=== PATIENT | male | born 1990 | race African-American/Black ===

== ENCOUNTER 2021-05-16 10:35 | Emergency (ER) | payer SELFPAY ==
--- NOTE | 2021-05-16 10:43 | EDM.PDOC ---
ED HPI GENERAL MEDICAL PROBLEM - General Chief Complaint: ENT Problem Stated Complaint: N/V Time Seen by Provider: 05/16/21 10:35 Source of Information: Reports: Patient, Family History Limitations: Reports: Combative/Threatening - History of Present Illness INITIAL COMMENTS - FREE TEXT/NARRATIVE: Enrike, 30-year-old male, presents with his significant other transporting him to the emergency department. They had pulled into the garage which time he got out and placed himself on the floor due to a toothache. His spouse stated that he had dental pain and was the reason that they presented here as his pain has become worse and today became severe. He is not been able to eat very well secondary of tooth pain stating he attempted sloppy [employer] yesterday but the pain was so bad he did not complete the meal. He is face down on the floor with his partner giving details of his dental pain denying any other aspects. He does not appear appropriate for dental pain and is very dramatic and uncooperative. Denies drug use, denies alcohol intoxication. Significant other becomes very upset when drugs and alcohol are questioned as he is not acting appropriate I advised both her as well as Enrike that it will not risk a back injury to any of my staff nor myself to pick somebody up off the floor that has a complaint presentation for dental pain. He becomes somewhat cantankerous and belligerent with foul language at which time he abruptly stands up with no difficulty and does a stair down prior to seating himself in the wheelchair and brought to the department for assessment. He is somewhat more cooperative once in the room and is have IV start with antiemetic and pain medication fluid management as he experienced a bilious emesis on the carpet of the entry with no attempt for control. 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 Abdominal Pain Score (Numeric/FACES): 10 - Related Data Allergies Allergy/AdvReac Type Severity Reaction Status Date / Time No Known Drug Allergies Allergy Cannot Verified 05/16/21 11:40 Remember Home Meds: Home Meds Potassium Chloride 20 meq PO BID 2 Days #4 tab.er.prt 05/16/21 [Rx] clindamycin HCL [Clindamycin HCl] 450 mg PO TID 10 Days #30 capsule 05/16/21 [Rx] Past Medical History - Past Health History Medical/Surgical History: Denies Medical/Surgical History Social & Family History - Family History Family Medical History: No Pertinent Family History - Recreational Drug Use Recreational Drug Use: Yes Drug Use in Last 12 Months: Yes Recreational Drug Type: Reports: Marijuana/Hashish Recreational Drug Use Frequency: Binges Recreational Drug Route: Reports: Inhaled ED ROS GENERAL - Review of Systems Review Of Systems: Comprehensive ROS is negative, except as noted in HPI. ED EXAM, GENERAL - Physical Exam Exam: See Below Free Text/Narrative:: Alert, oriented and exaggerated distress. HEENT shows no discharge nor deformity with significant dentition concerns both upper and lower with #1 number 04/21/13 significantly carried and eroding. There is #17 and #[id number] with significant involvement. No edema noted, mild erythema in the right lower jaw. Neck is soft supple no lymphadenopathy. Thorax is clear nonlabored respirations. Cardiac regular. Course - Vital Signs Last Recorded V/S: Last Vital Signs Temp 96.5 F L 05/16/21 10:35 Pulse 51 L 05/16/21 10:35 Resp 20 05/16/21 10:35 BP 139/74 05/16/21 10:35 Pulse Ox 100 05/16/21 10:35 - Orders/Labs/Meds Orders: Active Orders 24 hr Category Date Time Status Peripheral IV Care [RC] . DIRECTED Care 05/16/21 10:48 Active Sodium Chloride 0.9% [Saline Flush] Med 05/16/21 10:48 Active 10 ml FLUSH Q8HR PRN Peripheral IV Insertion Adult [OM.PC] Stat Oth 05/16/21 10:48 Ordered Medication Orders Sodium Chloride (Sodium Chloride 0.9% 10 Ml Syringe) 10 ml FLUSH Q8HR PRN PRN Reason: keep vein open Labs: Laboratory Tests 05/16/21 05/16/21 05/16/21 Range/Units 13:15 13:15 13:50 WBC 21.69 H (5.00-10.00) 10^3/uL RBC 4.61 (4.50-6.00) 10^6/uL Hgb 13.9 (13.0-17.0) g/dL Hct 41.5 (40.0-52.0) % MCV 90.0 (82.0-92.0) fL MCH 30.2 (27.0-31.0) pg MCHC 33.5 (32.0-36.0) g/dL RDW 12.9 (11.5-14.5) % Plt Count 354 (150-400) 10^3/uL MPV 8.9 (7.4-10.4) fL Immature Gran % (Auto) 0.1 (0.0-5.0) % Neut % (Auto) 89.1 H (50.0-70.0) % Lymph % (Auto) 6.2 L (20.0-40.0) % [place] % (Auto) 4.4 (2.0-8.0) % Eos % (Auto) 0.0 L (1.0-3.0) % Baso % (Auto) 0.2 (0.0-1.0) % Neut # (Auto) 19.31 H (2.50-7.00) 10^3/uL Lymph # (Auto) 1.34 (1.00-4.00) 10^3/uL [place] # (Auto) 0.96 H (0.10-0.80) 10^3/uL Eos # (Auto) 0.01 L (0.10-0.30) 10^3/uL Baso # (Auto) 0.04 (0.00-0.10) 10^3/uL Immature Gran # (Auto) 0.03 (0.00-0.50) 10^3/uL Sodium 142 (136-145) mmol/L Potassium 2.9 L (3.5-5.1) mmol/L Chloride 102 (98-107) mmol/L Carbon Dioxide 22.6 (21.0-32.0) mmol/L Anion Gap 20.3 H (5-15) mmol/L BUN 8 (7-18) mg/dL Creatinine 1.05 (0.51-1.17) mg/dL Est Cr Clr Drug Dosing TNP Estimated GFR (MDRD) > 60 mL/min Glucose 152 H (70-140) mg/dL Calcium 8.8 (8.7-10.3) mg/dL Total Bilirubin 0.6 (0.2-1.0) mg/dL AST 18 (15-37) U/L ALT 24 (14-63) U/L Alkaline Phosphatase 57 (46-116) U/L Total Protein 8.3 H (6.4-8.2) g/dL Albumin 4.55 (3.40-5.00) g/dL Amylase 100 (25-125) U/L Lipase 78 (73-393) U/L Specimen Type Urincc Urine Color Yellow (YELLOW) Urine Appearance Clear (CLEAR) Urine pH 6.0 (5.0-9.0) Ur Specific [place] 1.025 (1.005-1.030) Urine Protein 30 H (NEGATIVE) mg/dL Urine Glucose (UA) Negative (NEGATIVE) mg/dL Urine Ketones 80 H (NEGATIVE) mg/dL Urine Occult Blood Negative (NEGATIVE) Urine Nitrite Negative (NEGATIVE) Urine Bilirubin Negative (NEGATIVE) Urine Urobilinogen 1.0 (0.2-1.0) E.U./dL Ur Leukocyte Esterase Negative (NEGATIVE) Urine RBC 0-5 (0-5) /HPF Urine WBC 0-5 (0-5) /HPF Ur Epithelial Cells Occasional /LPF Urine Bacteria Few (NONE TO FEW) /HPF Urine Mucus Many H (NEGATIVE) /LPF Urine Opiates Screen (NEGATIVE) Ur Oxycodone Screen (NEGATIVE) Urine Methadone Screen (NEGATIVE) Ur Propoxyphene Screen (NEGATIVE) Ur Barbiturates Screen (NEGATIVE) Ur Tricyclics Screen (NEGATIVE) Ur Phencyclidine Scrn (NEGATIVE) Ur Amphetamine Screen (NEGATIVE) U Methamphetamines Scrn (NEGATIVE) U Benzodiazepines Scrn (NEGATIVE) U Cocaine Metab Screen (NEGATIVE) U Marijuana (THC) Screen (NEGATIVE) 05/16/21 Range/Units 13:50 WBC (5.00-10.00) 10^3/uL RBC (4.50-6.00) 10^6/uL Hgb (13.0-17.0) g/dL Hct (40.0-52.0) % MCV (82.0-92.0) fL MCH (27.0-31.0) pg MCHC (32.0-36.0) g/dL RDW (11.5-14.5) % Plt Count (150-400) 10^3/uL MPV (7.4-10.4) fL Immature Gran % (Auto) (0.0-5.0) % Neut % (Auto) (50.0-70.0) % Lymph % (Auto) (20.0-40.0) % [place] % (Auto) (2.0-8.0) % Eos % (Auto) (1.0-3.0) % Baso % (Auto) (0.0-1.0) % Neut # (Auto) (2.50-7.00) 10^3/uL Lymph # (Auto) (1.00-4.00) 10^3/uL [place] # (Auto) (0.10-0.80) 10^3/uL Eos # (Auto) (0.10-0.30) 10^3/uL Baso # (Auto) (0.00-0.10) 10^3/uL Immature Gran # (Auto) (0.00-0.50) 10^3/uL Sodium (136-145) mmol/L Potassium (3.5-5.1) mmol/L Chloride (98-107) mmol/L Carbon Dioxide (21.0-32.0) mmol/L Anion Gap (5-15) mmol/L BUN (7-18) mg/dL Creatinine (0.51-1.17) mg/dL Est Cr Clr Drug Dosing Estimated GFR (MDRD) mL/min Glucose (70-140) mg/dL Calcium (8.7-10.3) mg/dL Total Bilirubin (0.2-1.0) mg/dL AST (15-37) U/L ALT (14-63) U/L Alkaline Phosphatase (46-116) U/L Total Protein (6.4-8.2) g/dL Albumin (3.40-5.00) g/dL Amylase (25-125) U/L Lipase (73-393) U/L Specimen Type Urine Color (YELLOW) Urine Appearance (CLEAR) Urine pH (5.0-9.0) Ur Specific [place] (1.005-1.030) Urine Protein (NEGATIVE) mg/dL Urine Glucose (UA) (NEGATIVE) mg/dL Urine Ketones (NEGATIVE) mg/dL Urine Occult Blood (NEGATIVE) Urine Nitrite (NEGATIVE) Urine Bilirubin (NEGATIVE) Urine Urobilinogen (0.2-1.0) E.U./dL Ur Leukocyte Esterase (NEGATIVE) Urine RBC (0-5) /HPF Urine WBC (0-5) /HPF Ur Epithelial Cells /LPF Urine Bacteria (NONE TO FEW) /HPF Urine Mucus (NEGATIVE) /LPF Urine Opiates Screen Negative (NEGATIVE) Ur Oxycodone Screen Negative (NEGATIVE) Urine Methadone Screen Negative (NEGATIVE) Ur Propoxyphene Screen Negative (NEGATIVE) Ur Barbiturates Screen Negative (NEGATIVE) Ur Tricyclics Screen Negative (NEGATIVE) Ur Phencyclidine Scrn Negative (NEGATIVE) Ur Amphetamine Screen Negative (NEGATIVE) U Methamphetamines Scrn Negative (NEGATIVE) U Benzodiazepines Scrn Negative (NEGATIVE) U Cocaine Metab Screen Negative (NEGATIVE) U Marijuana (THC) Screen Positive H (NEGATIVE) Meds: Medications Generic Name Dose Route Start Last Admin Trade Name Freq PRN Reason Stop Dose Admin Sodium Chloride 10 ml 05/16/21 10:48 Sodium Chloride 0.9% 10 Ml Syringe FLUSH Q8HR PRN keep vein open Discontinued Medications Generic Name Dose Route Start Last Admin Trade Name Freq PRN Reason Stop Dose Admin Dicyclomine HCl 20 mg 05/16/21 12:20 05/16/21 12:27 Dicyclomine 20 Mg/2 Ml Sdv IM 05/16/21 12:21 20 mg ONETIME ONE Administration Famotidine 20 mg 05/16/21 11:53 05/16/21 11:59 Famotidine 20 Mg/2 Ml Sdv IVPUSH 05/16/21 11:54 20 mg ONETIME ONE Administration Sodium Chloride 1,000 mls @ 999 mls/hr 05/16/21 10:51 05/16/21 10:45 Normal Saline IV 05/16/21 11:51 999 mls/hr .BOLUS ONE Administration Promethazine HCl 25 mg/ Sodium 101 mls @ 400 mls/hr 05/16/21 11:22 05/16/21 11:33 Chloride IV 05/16/21 11:37 400 mls/hr ONETIME ONE Administration Sodium Chloride Confirm 05/16/21 11:29 05/16/21 11:43 Normal Saline Administered 05/16/21 11:30 Not Given Dose 100 mls @ as directed .ROUTE .STK-MED ONE Clindamycin Phosphate 900 mg/ 56 mls @ 100 mls/hr 05/16/21 13:31 05/16/21 14:15 Sodium Chloride IV 05/16/21 14:04 Not Given ONETIME ONE Clindamycin Phosphate 900 mg/ 50 mls @ 100 mls/hr 05/16/21 13:53 05/16/21 13:54 Premix IV 05/16/21 14:22 100 mls/hr ONETIME ONE Administration Ketorolac Tromethamine 30 mg 05/16/21 10:48 05/16/21 10:53 Ketorolac 30 Mg/Ml Sdv IVPUSH 05/16/21 10:49 30 mg ONETIME ONE Administration Ketorolac Tromethamine 30 mg 05/16/21 10:49 05/16/21 10:55 Ketorolac 30 Mg/Ml Sdv IM 05/16/21 10:50 30 mg ONETIME ONE Administration Ondansetron HCl Confirm 05/16/21 10:46 05/16/21 11:43 Ondansetron 4 Mg/2 Ml Sdv Administered 05/16/21 10:47 Not Given Dose 4 mg .ROUTE .STK-MED ONE Ondansetron HCl 4 mg 05/16/21 10:48 05/16/21 10:48 Ondansetron 4 Mg/2 Ml Sdv IVPUSH 05/16/21 10:49 4 mg ONETIME ONE Administration - Radiology Interpretation Free Text/Narrative:: Negative chest x-ray for any significance for infiltrate, hemopneumothorax. Nonspecific bowel gas pattern possible viral or very early ileus but is most likely secondary of hyperemesis and the muscle cramping he is brought up on by his cannabinoid hyperemesis. - Re-Assessments/Exams Free Text/Narrative Re-Assessment/Exam: 05/16/21 11:22 Standing at bedside complaining of continued nausea 05/16/21 12:25 Tooth pain is subsided but ongoing nausea coming in waves with mild cramping. 05/16/21 13:34 X-rays obtained in blood for lab work with him not cooperating for urinalysis after receiving 1 L of IV fluid. At this time explained to him again the reality that we have exhausted all limits of medication, without doing complete lab analysis including the urine. When questioned on marijuana at this time he acknowledges that he does smoke possibly 4 days a week last time yesterday. Significant other states daily use I explained that he likely got a bad bag of weed with a higher THC level or that it is finally caught up with him from higher level of use. I explained that we have treated him to the limits of our ability in regards to the nausea and vomiting and that he will need to continue to maintain hydration, take antibiotic for the dental infection, see a dentist as soon as possible, and avoid any further irritation and have complete cessation of marijuana. 05/16/21 13:44 He is up requesting bathroom at this time for defecation provided him with urine as we are able to get a sample hopefully. Free Text/Narrative Re-Assessment/Exam: 05/16/21 14:33 Resting more comfortable with still occasional spasming and nausea development. Was able to be up and ambulate to the bathroom and back with minimal discomfort returning to the bed for the IV antibiotic. Was again readvised on the overall perspective and needed cessation of marijuana. Schedule at your clinic as soon as possible for recheck this week. Departure - Departure Time of Disposition: 14:25 Disposition: Home, Self-Care 01 Condition: Fair Clinical Impression: Cannabinoid hyperemesis syndrome, Dental caries, Dental infection, Hypokalemia, Pain due to dental caries - Discharge Information *PRESCRIPTION DRUG MONITORING PROGRAM REVIEWED*: Not Applicable *COPY OF PRESCRIPTION DRUG MONITORING REPORT IN PATIENT JASS: Not Applicable Prescriptions: clindamycin HCL [Clindamycin HCl] 450 mg PO TID 10 Days #30 capsule Potassium Chloride 20 meq PO BID 2 Days #4 tab.er.prt Instructions: Cannabis Use Disorder, Hypokalemia, Nausea and Vomiting, Adult, [id number], Preventing Marijuana Misuse Referrals: Rachell Eason MD [Primary Care Provider] - Forms: ED Department Discharge Additional Instructions: I explained that you likely got a bad bag of weed with a higher THC level or that has finally caught up with you from higher level of use. I explained that we have treated you to the limits of our ability in regards to the nausea and vomiting and that you will need to continue to maintain hydration, take antibiotic for the dental infection, see a dentist as soon as possible, and avoid any further irritation and have complete cessation of marijuana. You are provided the initial dose of antibiotics here and there is a prescription for you at [facility] for continuation of that. You will need to take that until the dentist either stops it or you complete the 10-day course. There is also a prescription for potassium there that you can take once your stomach settles down 1 tablet twice daily for 2 days in conjunction to high potassium containing foods. You will need to schedule an appointment at the clinic for recheck Saturday before the weekend. [facility] is the most convenient for you for travel issues. You need to drink as much fluid as possible but do not drink so much that you make yourself vomit. May be beneficial but only sip with a teaspoon or so rinsing your mouth and then swallowing every 5 to 10 minutes until you are able to drink a larger volume. If you use sports drinks make sure they are clear not using red-blue or yellow coloring. Sepsis Event Note (ED) - Focused Exam Vital Signs: Vital Signs Temp Pulse Resp BP Pulse Ox 05/16/21 10:35 96.5 F L 51 L 20 139/74 100 - Problem List & Annotations (1) Dental caries SNOMED Code(s): 71247830 Code(s): K02.9 - DENTAL CARIES, UNSPECIFIED Status: Acute Current Visit: Yes (2) Pain due to dental caries SNOMED Code(s): 51730026, 77630751 Code(s): K02.9 - DENTAL CARIES, UNSPECIFIED Status: Acute Current Visit: Yes (3) Dental infection SNOMED Code(s): 821456892 Code(s): K04.7 - PERIAPICAL ABSCESS WITHOUT SINUS Status: Acute Current Visit: Yes (4) Cannabinoid hyperemesis syndrome SNOMED Code(s): 586725091 Code(s): R11.2 - NAUSEA WITH VOMITING, UNSPECIFIED; F12.90 - CANNABIS USE, UNSPECIFIED, UNCOMPLICATED Status: Acute Priority: High Current Visit: Yes (5) Hypokalemia SNOMED Code(s): 48634049 Code(s): E87.6 - HYPOKALEMIA Status: Acute Current Visit: Yes - Problem List Review Problem List Initiated/Reviewed/Updated: Yes - My Orders Last 24 Hours: My Active Orders 05/16/21 10:48 Peripheral IV Care [RC] . DIRECTED Sodium Chloride 0.9% [Saline Flush] 10 ml FLUSH Q8HR PRN Peripheral IV Insertion Adult [OM.PC] Stat - Assessment/Plan Last 24 Hours: My Active Orders 05/16/21 10:48 Peripheral IV Care [RC] . DIRECTED Sodium Chloride 0.9% [Saline Flush] 10 ml FLUSH Q8HR PRN Peripheral IV Insertion Adult [OM.PC] Stat Plan: I explained that you likely got a bad bag of weed with a higher THC level or that has finally caught up with you from higher level of use. I explained that we have treated you to the limits of our ability in regards to the nausea and vomiting and that you will need to continue to maintain hydration, take antibiotic for the dental infection, see a dentist as soon as possible, and avoid any further irritation and have complete cessation of marijuana. You are provided the initial dose of antibiotics here and there is a prescription for you at [facility] for continuation of that. You will need to take that until the dentist either stops it or you complete the 10-day course. There is also a prescription for potassium there that you can take once your stomach settles down 1 tablet twice daily for 2 days in conjunction to high potassium containing foods. You will need to schedule an appointment at the clinic for recheck Saturday before the weekend. [facility] is the most convenient for you for travel issues. You need to drink as much fluid as possible but do not drink so much that you make yourself vomit. May be beneficial but only sip with a teaspoon or so rinsing your mouth and then swallowing every 5 to 10 minutes until you are able to drink a larger volume. If you use sports drinks make sure they are clear not using red-blue or yellow coloring.
[2021-05-16] MEDS ORDERED: Ondansetron 4 MG/2 ML SDV ONE (10:46)
[2021-05-16] MEDS ORDERED: Ketorolac 30 MG/ML SDV IVPUSH ONE (10:48)
[2021-05-16] MEDS ORDERED: Sodium Chloride 0.9% 10 ML Syringe FLUSH PRN (10:48)
[2021-05-16] MEDS ORDERED: Ondansetron 4 MG/2 ML SDV IVPUSH ONE (10:48)
[2021-05-16] MEDS ORDERED: Ketorolac 30 MG/ML SDV IM ONE (10:49)
[2021-05-16] MEDS ORDERED: Sodium Chloride 0.9% 1,000 ML IV ONE (10:51)
[2021-05-16] MEDS ORDERED: Promethazine 25 MG in Sodium Chloride 0.9% 100 ML IV ONE (11:22)
[2021-05-16] MEDS ORDERED: Sodium Chloride 0.9% 100 ML ONE (11:29)
[2021-05-16] MEDS ORDERED: Famotidine 20 MG/2 ML SDV IVPUSH ONE (11:53)
[2021-05-16] MEDS ORDERED: Dicyclomine 20 MG/2 ML SDV IM ONE (12:20)
--- NOTE | 2021-05-16 13:38 | CR ---
[id number] RAD/RAD Abd Flat and Upright 2V EXAM: RAD Abd Flat and Upright 2V INDICATION: ABDOMEN CRAMPING,NAUSEA. COMPARISON: None. Discussion/Impression: Gas-filled loops of mildly distended small bowel in the upper abdomen. Air-fluid levels in the upper abdomen and right lower quadrant. Findings are nonspecific. Early changes of ileus or obstruction are possible. However similar findings can be seen with gastroenteritis. If symptoms persist or worsen, CT examination of the abdomen/pelvis with intravenous and oral contrast is recommended. Jeffrey Garcia MD 05/16/21 [id number] Thank you for allowing us to participate in the care of your patient.
--- NOTE | 2021-05-16 13:39 | CR ---
[id number] RAD/RAD Chest PA And Lateral EXAM: RAD Chest PA And Lateral INDICATION: ABDOMEN CRAMPING,NAUSEA. COMPARISON: None. DISCUSSION/IMPRESSION: Cardiomediastinal silhouette is normal in size and contour. Lungs are clear. No pleural effusion or pneumothorax. Jeffrey Garcia MD 05/16/21 [id number] Thank you for allowing us to participate in the care of your patient.
[2021-05-16 13:42] LABS: ANION GAP 20.3 mmol/L (5-15); CHLORIDE,CL 102 mmol/L (98-107); SODIUM,NA 142 mmol/L (136-145)
[2021-05-16] MEDS ORDERED: Clindamycin Phosphate in D5W 900 MG in Premix Bag 1 BAG IV ONE ×2 (13:53)
[2021-05-16 14:18] LABS: BARBITURATE SCREEN,URINE NEGATIVE (NEGATIVE); BENZODIAZEPINES SCREEN,URINE NEGATIVE (NEGATIVE); TCA SCREEN,URINE NEGATIVE (NEGATIVE); THC SCREEN,URINE 50 NG/ML POSITIVE (NEGATIVE)
== END 2021-05-16 14:55 | disposition home or self-care (01) ==
LOC: KA.ED 10:35
DX: K04.7 Periapical abscess without sinus (principal); K02.9 Dental caries, unspecified; E87.6 Hypokalemia; R11.10 Vomiting, unspecified; F12.90 Cannabis use, unspecified, uncomplicated
CPT/HCPCS: 36415; 71046; 74021; 80053; 80305-QW; 81001; 82150; 83690; 85025; 96365; 96367; 96372; 96375; 99284-25; J0500; J1885; J2405; J2550; J3490; J7030

== ENCOUNTER 2024-04-25 13:55 | Observation (INO) | payer SELFPAY ==
[2024-04-25] MEDS: Sodium Chloride 0.9% 1,000 ML IV ONE (14:05)
[2024-04-25 14:18] LABS: BASOPHILS ABSOLUTE AUTO 0.03 10^3/uL (0.00-0.10); BASOPHILS PERCENT AUTO 0.2 % (0.0-1.0); EOSINOPHILS ABSOLUTE AUTO 0.01 10^3/uL (0.10-0.30); EOSINOPHILS PERCENT AUTO 0.1 % (1.0-3.0); HEMATOCRIT 43.2 % (40.0-52.0); HEMOGLOBIN 14.5 g/dL (13.0-17.0); IMMATURE GRAN ABSOLUTE AUTO 0.01 10^3/uL (0.00-0.50); IMMATURE GRAN PERCENT AUTO 0.1 % (0.0-5.0); LYMPHOCYTES ABSOLUTE AUTO 0.86 10^3/uL (1.00-4.00); LYMPHOCYTES PERCENT AUTO 4.8 % (20.0-40.0); MEAN CORPUSCULAR HEMOGLOBIN 30.1 pg (27.0-31.0); MEAN CORPUSCULAR HGB CONC 33.6 g/dL (32.0-36.0); MEAN CORPUSCULAR VOLUME 89.8 fL (82.0-92.0); MONOCYTES ABSOLUTE AUTO 0.58 10^3/uL (0.10-0.80); MONOCYTES PERCENT AUTO 3.2 % (2.0-8.0); NEUTROPHILS ABSOLUTE AUTO 16.56 10^3/uL (2.50-7.00); NEUTROPHILS PERCENT AUTO 91.6 % (50.0-70.0); PLATELET COUNT,PLT 347 10^3/uL (150-400); RED BLOOD CELL COUNT 4.81 10^6/uL (4.50-6.00); RED CELL DISTRIBUTION WIDTH 12.9 % (11.5-14.5); WHITE BLOOD CELL COUNT,WBC 18.05 10^3/uL (5.00-10.00)
[2024-04-25] MEDS: Ondansetron 4 MG/2 ML SDV IVPUSH ONE (14:29)
[2024-04-25 14:30] LABS: APPEARANCE,URINE CLEAR (CLEAR); BILIRUBIN,URINE NEGATIVE (NEGATIVE); COLOR,URINE YELLOW (YELLOW); GLUCOSE,URINE NEGATIVE (NEGATIVE); KETONES,URINE 80 mg/dL (NEGATIVE); LEUKOCYTE ESTERASE,URINE NEGATIVE (NEGATIVE); NITRITE,URINE NEGATIVE (NEGATIVE); OCCULT BLOOD,URINE TRACE-INTACT (NEGATIVE); PH,URINE 7.5 (5.0-9.0); PROTEIN,URINE 30 mg/dL (NEGATIVE); UROBILINOGEN,URINE 0.2 E.U./dL (0.2-1.0)
[2024-04-25 14:34] LABS: ALANINE AMINOTRANSFERASE,ALT 38 U/L (14-63); ALBUMIN 4.88 g/dL (3.40-5.00); ALKALINE PHOSPHATASE 61 U/L (46-116); ANION GAP 16.2 mmol/L (5-15); ASPARTATE AMNIOTRANSFERASE,AST 28 U/L (15-37); BILIRUBIN TOTAL 0.7 mg/dL (0.2-1.0); BLOOD UREA NITROGEN,BUN 6 mg/dL (7-18); CALCIUM 8.9 mg/dL (8.7-10.3); CARBON DIOXIDE,CO2 25.3 mmol/L (21.0-32.0); CHLORIDE,CL 102 mmol/L (98-107); CREATININE 1.09 mg/dL (0.51-1.17); GLUCOSE RANDOM 152 mg/dL (70-140); LIPASE 14 U/L (16-77); POTASSIUM,K 3.5 mmol/L (3.5-5.1); PROTEIN TOTAL,TP 8.4 g/dL (6.4-8.2); SODIUM,NA 140 mmol/L (136-145)
[2024-04-25 14:35] LABS: ESTIMATED GFR 98 mL/min (>=60); ETHANOL BLOOD MEDICAL < 3 mg/dL (<3)
[2024-04-25 14:37] LABS: THC SCREEN,URINE 50 NG/ML POSITIVE (NEGATIVE)
[2024-04-25 14:38] LABS: AMPHETAMINES SCREEN, URINE NEGATIVE (NEGATIVE); BARBITURATE SCREEN,URINE NEGATIVE (NEGATIVE); BENZODIAZEPINES SCREEN,URINE NEGATIVE (NEGATIVE); COCAINE METABOLITES,URINE NEGATIVE (NEGATIVE); METHADONE SCREEN, URINE NEGATIVE (NEGATIVE); METHAMPHETAMINES SCREEN, URINE NEGATIVE (NEGATIVE); OXYCODONE SCREEN,URINE NEGATIVE (NEGATIVE); PCP SCREEN,URINE NEGATIVE (NEGATIVE); TCA SCREEN,URINE NEGATIVE (NEGATIVE)
[2024-04-25] MEDS: Metoclopramide 10 MG/2 ML SDV IVPUSH ONE (14:40)
[2024-04-25] MEDS: Iopamidol 755 Mg/ML 100 ML Bottle IV ONE (15:05)
[2024-04-25] MEDS: Sodium Chloride 0.9% 50 ML IV SCH (15:05)
[2024-04-25] MEDS: Metoclopramide 10 MG/2 ML SDV ONE (15:24)
[2024-04-25] MEDS: Cefepime 2 GM Vial IVPUSH ONE (15:25)
[2024-04-25] MEDS: HYDROmorphone 1 MG/ML Syringe IVPUSH ONE (15:42)
[2024-04-25] MEDS ORDERED: Acetaminophen/HYDROcodone 325-5 MG Tab PO PRN (18:13)
[2024-04-25] MEDS ORDERED: Acetaminophen 325 MG Tab PO PRN (18:13)
[2024-04-25] MEDS: Sodium Chloride 0.9% 1,000 ML IV SCH (19:13)
[2024-04-25] MEDS: Morphine 2 MG/ML SYRINGE IVPUSH PRN (19:13)
[2024-04-25] MEDS: Pantoprazole 40 MG Vial IVPUSH SCH (19:13)
[2024-04-25] MEDS: Piperacillin/Tazobactam 4.5 GM in Sodium Chloride 0.9% 100 ML IV ONE (19:16)
[2024-04-25] MEDS: Ondansetron 4 MG/2 ML SDV IV PRN (19:26)
[2024-04-25] MEDS: HYDROmorphone 1 MG/ML Syringe IVPUSH PRN (20:37)
[2024-04-25] MEDS: Prochlorperazine 5 MG in Sodium Chloride 0.9% 50 ML IV PRN (20:39)
[2024-04-25] MEDS ORDERED: Piperacillin/Tazobactam 4.5 GM in Sodium Chloride 0.9% 100 ML IV SCH (22:30)
[2024-04-26] MEDS: Piperacillin/Tazobactam 4.5 GM in Sodium Chloride 0.9% 100 ML IV SCH (02:03)
[2024-04-26 07:37] LABS: HEMATOCRIT 37.3 % (40.0-52.0); HEMOGLOBIN 12.7 g/dL (13.0-17.0); MEAN CORPUSCULAR HEMOGLOBIN 30.4 pg (27.0-31.0); MEAN CORPUSCULAR VOLUME 89.2 fL (82.0-92.0); MEAN PLATELET VOLUME 9.1 fL (7.4-10.4); PLATELET COUNT,PLT 291 10^3/uL (150-400); RED BLOOD CELL COUNT 4.18 10^6/uL (4.50-6.00); RED CELL DISTRIBUTION WIDTH 13.1 % (11.5-14.5); WHITE BLOOD CELL COUNT,WBC 13.09 10^3/uL (5.00-10.00)
[2024-04-26 07:52] LABS: ALBUMIN 3.84 g/dL (3.40-5.00); ANION GAP 11.7 mmol/L (5-15); BILIRUBIN TOTAL 0.9 mg/dL (0.2-1.0); CARBON DIOXIDE,CO2 26.8 mmol/L (21.0-32.0); CREATININE 1.14 mg/dL (0.51-1.17); EST CRCL DRUG DOSING (CG) 126.5 mL/min; POTASSIUM,K 3.5 mmol/L (3.5-5.1); PROTEIN TOTAL,TP 6.8 g/dL (6.4-8.2)
[2024-04-26] MEDS: Ondansetron 4 MG Tab.DIS PO ONE (11:39)
== END 2024-04-26 11:50 | disposition home or self-care (01) ==
LOC: KA.ED 13:55 → MERGE 16:47 → KA.MS 16:47
PROVIDERS: ADMIT Internal Medicine; ATTEND Internal Medicine
DX: A41.9 Sepsis, unspecified organism (principal); R10.30 Lower abdominal pain, unspecified; R11.2 Nausea with vomiting, unspecified; R00.1 Bradycardia, unspecified; E87.20 Acidosis, unspecified; D72.829 Elevated white blood cell count, unspecified; Z79.899 Other long term (current) drug therapy
CPT/HCPCS: 36415; 74177; 80053; 80305-QW; 80307; 81003; 83605; 83690; 84484; 85025; 85027; 86140; 87040; 93005; 93010; 99223; 99238; 99284; A9270-GY; J0692; J0780; J1171; J2270; J2405; J2470; J2543; J2765; J3490; J7030; Q3014; Q9967